=== PATIENT | male | born 1960 | race Caucasian/White ===

== ENCOUNTER 2016-03-22 10:32 | Observation (INO) ==
[2016-03-22 10:43] LABS: URINE MICRO REVIEW NEEDED? NO; URINE SOURCE VOIDED
[2016-03-22 11:17] LABS: BILIRUBIN URINE NEGATIVE (NEGATIVE); BLOOD URINE NEGATIVE (NEGATIVE); COLOR YELLOW; GLUCOSE URINE NEGATIVE (NEGATIVE); LEUKOCYTES URINE NEGATIVE (NEGATIVE); NITRITE URINE NEGATIVE (NEGATIVE); PROTEIN URINE TRACE mg/dL (NEGATIVE); SP GRAVITY URINE 1.022; TURBIDITY URINE CLEAR (CLEAR); UROBILINOGEN URINE NORMAL (NORMAL)
[2016-03-22 11:18] LABS: HEMATOCRIT 28.5 % (42.0-52.0); MCH 29.1 PG (27-31); MCHC 31.6 g/dL (33-37); MCV 92.2 FL (81-99); MPV 10.9 FL (7.4-10.4); RBC 3.09 XMIL (4.7-6.1); UR EPITHELIAL CELLS <10 /HPF (<10); URINE BACTERIA NEGATIVE /HPF; URINE RBC <10 /HPF (<10); URINE WBC <10 /HPF (<10)
[2016-03-22] MEDS ORDERED: ZOFRAN IV PRN (11:40)
[2016-03-22] MEDS ORDERED: ZOFRAN PO PRN (11:40)
[2016-03-22] MEDS ORDERED: VANCOMYCIN IV PER PHARMACY MISC SCH (11:45)
[2016-03-22 11:59] LABS: INR 0.92; PROTIME 9.7 Seconds (9.2-11.7)
[2016-03-22] MEDS: NORCO-10 PO PRN ×2 (12:03→16:11)
[2016-03-22] MEDS: 1/2 NS 1,000 ML IV SCH (12:05)
--- NOTE | 2016-03-22 12:28 | Diag Imaging Result Document ---
PROCEDURE NAME: FOOT COMPLETE RIGHT - 03/22/2016 RIGHT FOOT, THREE VIEWS: FINDINGS: There has been amputation of the forefoot at the level of the proximal metatarsal, since the previous study of . There may be some soft tissue gas adjacent to the first metatarsal; however, this may simply be due to subcutaneous fat. It is difficult to assess the difference between what may be erosion and postsurgical change. For the most part, the surfaces of the amputated bones appears to be fairly well circumscribed. IMPRESSION: 1. Partial amputation of the forefoot, as described. 2. The possibility of chronic osteomyelitis cannot be entirely excluded on the basis of this study. 3. Further evaluation with MRI may be desirable.
[2016-03-22 12:51] LABS: AGAP 11; ALBUMIN 3.8 g/dL (3.5-5.0); ALKALINE PHOSPHATASE 73 U/L (32-122); BUN 16 mg/dL (8-22); CALCIUM 8.8 mg/dL (8.8-10.2); CHLORIDE 102 mmol/L (98-107); COSMO 276; GOT 19 U/L (10-34); GPT 16 U/L (10-44); SODIUM 137 mmol/L (136-145); TCO2 24 mmol/L (25-35); TOTAL BILIRUBIN < 0.10 mg/dL (0.20-1.00)
[2016-03-22] MEDS ORDERED: NS 250 ML ONE (14:54)
[2016-03-22] MEDS ORDERED: INVANZ 1 GM/NS 50 ML IV SCH (15:15)
[2016-03-22] MEDS ORDERED: VANCOMYCIN 2.5 GM in NS 500 ML IV SCH (16:00)
[2016-03-22] MEDS: GLUCOPHAGE PO SCH (17:03)
--- NOTE | 2016-03-22 18:00 | CONSULTATION ---
DATE OF CONSULTATION: 03/22/2016 CONCLUSION: The patient is admitted to the hospital with a recurrent infection in his right foot. There is a foul odor to the drainage coming from the foot and there is gas seen in the tissue on x- ray of the foot. This would be very suspicious that anaerobic organisms are involved in the infection. RECOMMENDATIONS: I obtained a fairly deep culture from the patient's foot by inserting a swab into a wound and it extended 1-2 cm. This, as mentioned above, is being sent for culture and susceptibility testing. Pending this study, I have placed the patient on a combination of vancomycin and Invanz. DISCUSSION: The patient had been doing well up until the past week when he started having drainage from his foot. It had a foul odor. He had progressive pain in the right foot also. He did not have fever or shaking chills and he did not recently injure his foot. LABORATORY STUDIES: Thus far show a CBC with a white count of 7040, hemoglobin 9 and platelet count 265,000. Creatinine is 1.2. GFR is greater than 60. Liver function studies are normal. An x-ray of the right foot shows soft tissue gas and no definite osteomyelitis. REVIEW OF SYSTEMS: Eyes and ears: Patient denies difficulty hearing or seeing. Neck: No meningismus. Respiratory: No cough or dyspnea. Cardiac: No chest pain or palpitations. GI: In the past 1-2 weeks, the patient has had some nausea and vomiting. It appears to be better today. Genitourinary: No flank pain or dysuria. Neurologic: No seizures. No motor. He does have some decreased sensation in his feet. Endocrine: The patient is diabetic, but he does not have thyroid disease. Bones, joints, muscles: Patient is having pain and drainage from his right foot. The remainder of the patient's review of systems was completed and was negative. PREVIOUS HOSPITALIZATIONS AND OPERATIONS: He has had bladder surgery for cancer. He has also had surgery of the right great toe and then transmetatarsal amputation of the right foot. PAST MEDICAL HISTORY: Medical Diseases: Positive for diabetes mellitus, peripheral vascular disease and cigarette smoking. Pravachol (paresthesias), manifested as decreased sensation in his feet and partial bladder outlet obstruction. Infectious disease history: Positive for infection of the foot. FAMILY HISTORY: Positive for diabetes mellitus. Negative for heart attack and stroke. SOCIAL HISTORY: The patient lives in [place]. He smokes cigarettes. Does not drink alcoholic beverages. He is . He is disabled. He has a cat as a pet. ALLERGIES: He has no known allergies. MEDICATIONS: Home medications include the following: Neurontin, [place], metformin, Pravachol, multivitamins, Flomax and Onglyza. PHYSICAL EXAMINATION: Vital Signs: Temperature is 97.7, pulse 61, respirations 20, blood pressure 106/60. Patient is 6 feet tall, and weighs 209 pounds. Generally: This is an obese, middle-aged male. He is in no acute distress. HEENT: He can hear my spoken words and see near objects. No drainage noted from the nose or ears. Neck: No meningismus. Thorax: Increased AP diameter of the chest. Lungs: Clear to auscultation. Cardiovascular: Peripheral pulses are palpable. Heart rate is regular. Abdomen: Soft and nontender. Extremities: The patient's right foot had an eschar on the end of it. I gradually picked at that eschar and was able to insert a swab for culture into approximately 1-2 cm. The drainage had a foul odor to it. Neurologic: Patient is awake. He can move his extremities. He has no tremor. His sensation is intact to touch. His memory as regarding his medical history is intact. Thank you for the consult.
[2016-03-22] MEDS: NEURONTIN PO SCH (20:01)
[2016-03-22] MEDS: ZANTAC PO SCH (20:02)
[2016-03-22] MEDS ORDERED: FLOMAX PO SCH (21:00)
[2016-03-23 06:15] VITALS: BP 137/65
[2016-03-23] MEDS ORDERED: ONGLYZA PO SCH (09:00)
[2016-03-23] MEDS ORDERED: PRINIVIL PO SCH (09:00)
[2016-03-23] MEDS ORDERED: PRAVACHOL PO SCH ×2 (09:00→21:00)
[2016-03-23] MEDS: NORCO-10 PO PRN (09:22)
[2016-03-23] MEDS: NEURONTIN PO SCH (09:23)
[2016-03-23] MEDS: GLUCOPHAGE PO SCH (09:23)
[2016-03-23] MEDS: ZANTAC PO SCH (09:24)
[2016-03-23] MEDS: 1/2 NS 1,000 ML IV SCH (09:27)
--- NOTE | 2016-03-23 09:58 | PROGRESS NOTE ---
DATE: 03/23/2016 PRESENT ILLNESS: The patient is admitted to the hospital with a right foot infection. The x-ray of the foot showed the possibility of chronic osteomyelitis. Culture from the foot has been taken but the result is pending. A bone scan also has been ordered for the right foot and this also is pending. MEDICATIONS: Patient is receiving vancomycin and ertapenem. PHYSICAL EXAMINATION: Vital Signs: Temperature is 97.8 degrees. Pulse 60. Respirations 14. Blood pressure 137/65. Generally: This looks like a healthy middle-aged male who is in no acute distress. Lungs: Clear to auscultation. Cardiovascular: Regular heart rate. Abdomen: Soft and nontender. Extremities: The patient's right foot has a crusted area distally. When this was partially removed, there was some purulent drainage that had a foul odor to it. LABORATORY AND X-RAY DATA: The patient's x-ray, as mentioned above, showed possible chronic osteomyelitis. A bone scan is pending. There are no new laboratory studies from yesterday except the patient's culture results, which is pending. ASSESSMENT AND PLAN: The patient will be treated with IV antibiotics, the length of which will be determined by what the bone scan shows. I plan to follow the patient back in the office as well. The patient has had a consult for a PICC and also social service has been contacted to get home antibiotics delivered by [facility]. COMORBIDITIES: The patient's comorbidities include he is a smoker and he told me he had no intention of giving it up. He also has diabetes mellitus and peripheral vascular disease in addition to a many year history of cigarette smoking.
[2016-03-23] MEDS ORDERED: NORCO-10 PO PRN (13:20)
--- NOTE | 2016-03-23 14:09 | Diag Imaging Result Document ---
PROCEDURE NAME: 3 PHASE BONE SCAN - 03/23/2016 THREE-PHASE BONE SCAN: FINDINGS: The patient was injected with 26 mCi of technetium-99m MDP and 3-phase scanning was performed over the feet. There is increased flow and blood pool activity in the distal portion of the right foot. There is focally increased static bone activity present in the remaining portion of the first metatarsal and probably the second metatarsal. Some increased activity is present at the distal end of the fourth and fifth metatarsals as well, but this is less intense than the activity in the first metatarsal. IMPRESSION: The possibility of osteomyelitis, particularly in the first metatarsal, cannot be excluded.
[2016-03-23] MEDS ORDERED: NEURONTIN PO SCH (21:00)
[2016-03-23] MEDS ORDERED: GLUCOPHAGE PO SCH (21:00)
[2016-03-23] MEDS ORDERED: FLOMAX PO SCH (21:00)
[2016-03-24] MEDS ORDERED: THERA M PLUS PO SCH (09:00)
[2016-03-24] MEDS ORDERED: ONGLYZA PO SCH (09:00)
--- NOTE | 2016-03-24 15:53 | Extremity Venous Study ---
PROCEDURE NAME: Venous U/S Bilateral Legs - 03/22/2016 DATE OF PROCEDURE: 03/22/2016. REFERRING PHYSICIAN: Dr. Sampson. INTERPRETING PHYSICIAN: Dr. Kruse. [place] MATE: Slime. INDICATIONS: The patient has nonhealing lesion of the right foot. DESCRIPTION OF PROCEDURE IN DETAIL: Bilateral lower extremity venous images accomplished. The common femoral, superficial femoral, deep femoral, popliteal, posterior tibial, peroneal, and greater saphenous are imaged bilaterally. Doppler is used to evaluate the veins for spontaneity, phasicity, respiratory excursion, and distal augmentation. All veins are compressible. No intraluminal clot is seen. Some enlarged lymph nodes noted in the right groin. INTERPRETATION: No evidence of deep or superficial venous thrombosis in either lower extremity in the veins identified.
== END 2016-03-23 13:40 | disposition home health service (06) ==
LOC: DIRADM 10:32 → 3N 11:01
PROVIDERS: ADMIT Surgery; ATTEND Surgery
DX: L03.115 Cellulitis of right lower limb (principal); E11.51 Type 2 diabetes mellitus with diabetic peripheral angiopathy without gangrene; E11.628 Type 2 diabetes mellitus with other skin complications; F17.210 Nicotine dependence, cigarettes, uncomplicated; A49.02 Methicillin resistant Staphylococcus aureus infection, unspecified site; C67.9 Malignant neoplasm of bladder, unspecified; M79.671 Pain in right foot; Z89.431 Acquired absence of right foot; E66.9 Obesity, unspecified; Z71.6 Tobacco abuse counseling; Z79.84 Long term (current) use of oral hypoglycemic drugs; Z79.899 Other long term (current) drug therapy
CPT/HCPCS: 36569; 78315; 80053; 81001; 85027; 85610; 87070; 87077; 93970; A9503; J1335; J3370; J7040; J7050